=== PATIENT | female | born 1940 | race Caucasian/White ===

== ENCOUNTER → 2018-09-07 | Outpatient (CLI) | payer MEDICAID, OTHER ==
[~2018-09-07] MED LIST: SULF1TAB24 PO; [UNRECOGNIZED DRUG - CODE] PO
== END | disposition home or self-care (01) ==
LOC: CFH 11:00
PROVIDERS: ATTEND Internal Medicine
DX: J84.10 Pulmonary fibrosis, unspecified (principal); K44.9 Diaphragmatic hernia without obstruction or gangrene
CPT/HCPCS: 71250

== ENCOUNTER 2019-10-18 23:04 | Emergency (ER) | payer MEDICARE ==
[~2019-10-18] VITALS: Ht 162.6 cm; Wt 78.0 kg
[2019-10-18 23:59] LABS: BASOPHILS # (AUTO) 0.14 x10^3/uL (0-0.1); BASOPHILS % (AUTO) 2 % (0-1); EOSINOPHILS # (AUTO) 0.34 x10^3/uL (0-0.4); EOSINOPHILS % (AUTO) 4 % (1-7); LYMPHOCYTES # (AUTO) 2.06 x10^3/uL (1-3.4); LYMPHOCYTES % (AUTO) 23 % (22-44); MD NO; MEAN CORPUSCULAR HEMOGLOBIN 30.5 pg (27.0-34.8); MEAN CORPUSCULAR HGB CONC 32.1 g/dL (32.4-35.8); MEAN CORPUSCULAR VOLUME 94.9 fL (80-100); MEAN PLATELET VOLUME 8.2 fL (7.4-10.4); MONOCYTES # (AUTO) 0.49 x10^3/uL (0.2-0.8); MONOCYTES % (AUTO) 6 % (2-9); NEUTROPHILS # (AUTO) 5.79 x10^3/uL (1.8-6.8); NEUTROPHILS % (AUTO) 66 % (42-75); PLATELET COUNT 328 x10^3/uL (130-400); RED BLOOD COUNT 4.27 x10^6/uL (3.82-5.3); RED CELL DISTRIBUTION WIDTH 14.4 % (9.6-15.2)
[2019-10-19 00:01] LABS: MICROSCOPIC NOT IND
[2019-10-19 00:04] LABS: CULTURE INDICATED? NO
[2019-10-19 00:11] LABS: ALANINE AMINOTRANSFERASE 18 U/L (12-78); ALBUMIN 3.2 g/dL (3.4-5.0); ANION GAP 6 mmol/L (5-15); CALCIUM 8.8 mg/dL (8.5-10.1); CHLORIDE 112 mmol/L (98-107); CREATININE 0.82 mg/dL (0.55-1.02)
[2019-10-19 00:14] LABS: ALKALINE PHOSPHATASE 83 U/L (45-117); BILIRUBIN,TOTAL 0.5 mg/dL (0.2-1.0)
[2019-10-19] MEDS ORDERED: ONDANSETRON 2MG/ML, 2ML ONE (00:42)
[2019-10-19] MEDS ORDERED: MORPHINE SULFATE 4 MG/ML, 1ML ONE ×2 (00:42→01:32)
[2019-10-19] MEDS: MORPHINE SULFATE 4 MG/ML, 1ML IVPush PRN ×2 (00:59→01:35)
[2019-10-19] MEDS ORDERED: ONDANSETRON 2MG/ML, 2ML IVPush ONE (01:00)
[2019-10-19] MEDS ORDERED: SODIUM CHLORIDE FLUSH 10ML SYR IVF ONE (01:00)
[2019-10-19 01:41] VITALS: BP 123/69
== END 2019-10-19 02:04 | disposition home or self-care (01) ==
LOC: ED 10-19 00:21
DX: S39.012A Strain of muscle, fascia and tendon of lower back, initial encounter (principal); J44.9 Chronic obstructive pulmonary disease, unspecified; F17.210 Nicotine dependence, cigarettes, uncomplicated; W18.30XA Fall on same level, unspecified, initial encounter; Y93.89 Activity, other specified; Y92.89 Other specified places as the place of occurrence of the external cause; Y99.8 Other external cause status
CPT/HCPCS: 36415; 74176; 80053; 81003; 85025; 99284; J2270; J2405; 96374; 96375; 96376

== ENCOUNTER 2020-05-14 10:32 | Outpatient (CLI) | payer MEDICARE, MEDICAID | END 2020-05-14 23:59 | disposition home or self-care (01) | LOC: CARD 10:32 | PROVIDERS: ATTEND Family Medicine | DX: Z02.9 Encounter for administrative examinations, unspecified (principal) ==

== ENCOUNTER → 2020-06-16 | Outpatient (CLI) | payer MEDICARE, MEDICAID ==
[~2020-06-16] MED LIST changes: +DOBUTAMINE/D5W PMX 250 ML ONE
== END | disposition home or self-care (01) ==
LOC: CARD 10:07
PROVIDERS: ATTEND Family Medicine
DX: R07.9 Chest pain, unspecified (principal); J44.9 Chronic obstructive pulmonary disease, unspecified; R53.83 Other fatigue; Z72.0 Tobacco use
CPT/HCPCS: 93017; 93350; J1250

== ENCOUNTER 2020-08-15 16:52 | Observation (INO) | payer MEDICARE, MEDICAID ==
[~2020-08-15] VITALS: Ht 162.6 cm; Wt 80.0 kg
[~2020-08-15 16:52] MED LIST changes: -DOBUTAMINE/D5W PMX 250 ML ONE
--- NOTE | 2020-08-15 17:30 | NUR ---
PT HAS CO N/T IN HANDS, AND "CRAMP IN FORHEAD" DENIES ANY FACIAL DROOPNESS OR STRENGTH DEFICIT. CMS INTACT, NEURO INTACT. GAIT STEADY, DENIES CP.
--- NOTE | 2020-08-15 18:18 | NUR ---
XR IN PROCESS
[2020-08-15] MEDS ORDERED: NICOTINE 14MG/24 HR PATCH.TD24 TD ONE (18:30)
[2020-08-15 18:48] LABS: BASOPHILS % (AUTO) 1 % (0-1); EOSINOPHILS % (AUTO) 4 % (1-7); LYMPHOCYTES % (AUTO) 22 % (22-44); MEAN PLATELET VOLUME 8.7 fL (7.4-10.4); MONOCYTES % (AUTO) 6 % (2-9); NEUTROPHILS % (AUTO) 67 % (42-75); PLATELET COUNT 350 x10^3/uL (130-400); RED BLOOD COUNT 4.51 x10^6/uL (3.82-5.3)
[2020-08-15 18:51] LABS: INTERNATIONAL NORMALIZED RATIO 0.99 (0.93-1.1); PROTHROMBIN TIME 10.2 Seconds (9.6-11.5)
[2020-08-15 18:53] LABS: ALBUMIN 3.4 g/dL (3.4-5.0); ANION GAP 7 mmol/L (5-15); C-REACTIVE PROTEIN, QUANT 0.44 mg/dL (0.02-0.49); CALCIUM 9.3 mg/dL (8.5-10.1); CHLORIDE 107 mmol/L (98-107)
--- NOTE | 2020-08-15 18:54 | NUR ---
RECEIVED REPORT, ASSUMED CARE OF 80 YEAR OLD FEMALE TO ED WITH DIZZINESS, HEADACHE, AND NUMBNESS TO LEFT HAND. PATIENT IS CURRENTLY AWAKE, SITTING IN BED, WITH NO DISTRESS. ED WORKUP ONGOING.
[2020-08-15 18:56] LABS: ALANINE AMINOTRANSFERASE 25 U/L (12-78); ALKALINE PHOSPHATASE 94 U/L (45-117); BILIRUBIN,TOTAL 0.2 mg/dL (0.2-1.0); CREATININE 0.99 mg/dL (0.55-1.02); TOTAL PROTEIN 7.5 g/dL (6.4-8.2)
[2020-08-15 18:58] LABS: MD NO
[2020-08-15] MEDS ORDERED: ASPIRIN 81 MG TABLET CHEW PO ONE ×2 (19:30)
[2020-08-15 19:49] LABS: HCT (SEDRATE) 41.1 % (34.6-47.8)
--- NOTE | 2020-08-15 20:01 | NUR ---
REPORT GIVEN TO FLOOR. TRANSPORT PENDING IV INSERTION.
[2020-08-15] MEDS ORDERED: NICOTINE 14MG/24 HR PATCH.TD24 ONE ×2 (20:04→20:21)
[2020-08-15] MEDS ORDERED: ASPIRIN 81 MG TABLET EC ONE (20:04)
[2020-08-15] MEDS ORDERED: ENOXAPARIN 40 MG/0.4 ML SQ SCH (20:30)
[2020-08-15] MEDS ORDERED: ONDANSETRON ODT 4 MG PO PRN (20:30)
[2020-08-15] MEDS ORDERED: GUAIFENESIN/DM 200-20MG, 10ML UDC PO PRN (20:30)
[2020-08-15] MEDS ORDERED: MELATONIN 5 MG TABLET PO PRN (20:30)
[2020-08-15] MEDS ORDERED: ACETAMINOPHEN 325 MG TABLET PO PRN (20:30)
[2020-08-15] MEDS ORDERED: QUETIAPINE 25MG TABLET PO SCH (21:00)
[2020-08-15] MEDS ORDERED: ALBUTEROL/IPRATROPIUM 2.5MG/0.5MG, 3 ML HHN PRN (21:00)
[2020-08-15] MEDS ORDERED: ATORVASTATIN 40 MG TABLET PO SCH (21:00)
[2020-08-15 21:42] VITALS: BP 127/63
[2020-08-15] MEDS ORDERED: OMNIPAQUE 350 MG/ML, 100ML BOTTLE ONE (23:37)
[2020-08-16 01:03] VITALS: BP 119/76
[2020-08-16 04:35] LABS: ANION GAP 7 mmol/L (5-15); BASOPHILS # (AUTO) 0.01 x10^3/uL (0-0.1); BASOPHILS % (AUTO) 0 % (0-1); CALCIUM 9.4 mg/dL (8.5-10.1); CHLORIDE 113 mmol/L (98-107); EOSINOPHILS # (AUTO) 0.01 x10^3/uL (0-0.4); EOSINOPHILS % (AUTO) 0 % (1-7); LYMPHOCYTES # (AUTO) 0.99 x10^3/uL (1-3.4); LYMPHOCYTES % (AUTO) 15 % (22-44); MD NO; MEAN CORPUSCULAR HEMOGLOBIN 29.9 pg (27.0-34.8); MEAN CORPUSCULAR HGB CONC 32.3 g/dL (32.4-35.8); MEAN PLATELET VOLUME 8.5 fL (7.4-10.4); MONOCYTES # (AUTO) 0.07 x10^3/uL (0.2-0.8); MONOCYTES % (AUTO) 1 % (2-9); NEUTROPHILS # (AUTO) 5.55 x10^3/uL (1.8-6.8); NEUTROPHILS % (AUTO) 84 % (42-75); PLATELET COUNT 338 x10^3/uL (130-400); RED BLOOD COUNT 4.63 x10^6/uL (3.82-5.3); RED CELL DISTRIBUTION WIDTH 13.9 % (9.6-15.2)
[2020-08-16 04:47] LABS: CHOLESTEROL, TOTAL 189 mg/dL (140-239); CREATININE 0.82 mg/dL (0.55-1.02); HDL CHOL % 33 % (28-40); HDL CHOLESTEROL (DIRECT) 63 mg/dL (40-60); LDL CHOLESTEROL,CALCULATED 107 mg/dL (54-169); LDL/HDL RATIO 1.7 (0.5-3.0); TRIGLYCERIDES 97 mg/dL (50-200); VLDL CHOLESTEROL 19 mg/dL (0-25)
[2020-08-16] MEDS ORDERED: ASPIRIN 81 MG TABLET EC PO SCH (06:00)
[2020-08-16 06:55] VITALS: BP 133/80
[2020-08-16] MEDS ORDERED: NICOTINE 21 MG/24 HR PATCH.TD24 TD SCH (09:00)
[2020-08-16] MEDS ORDERED: SENNA/DOCUSATE TABLET PO SCH (09:00)
[2020-08-16] MEDS ORDERED: ALBUTEROL-IPRATROPIUM MDI INH INH PRN (10:30)
[2020-08-16 13:02] VITALS: BP 112/70
== END 2020-08-16 17:22 | disposition home or self-care (01) ==
LOC: ED 17:30 → INTOOBSV 21:17 → EDIP 21:17 → 4WST 21:24
PROVIDERS: ADMIT Family Medicine; ATTEND Family Medicine
DX: R20.2 Paresthesia of skin (principal); J44.1 Chronic obstructive pulmonary disease with (acute) exacerbation; G43.909 Migraine, unspecified, not intractable, without status migrainosus; F17.210 Nicotine dependence, cigarettes, uncomplicated; Z79.899 Other long term (current) drug therapy
CPT/HCPCS: 36415; 70450; 70496; 70498; 70551; 71045; 80048; 80053; 80061; 83036; 84145; 84443; 85025; 85610; 85651; 85730; 86140; 93005; 93306; 96372; 97161; 99285; G0378; J1650; J7512; Q9967